=== PATIENT | female | born 1960 | race Caucasian/White ===

== ENCOUNTER 2024-02-14 03:20 | Observation (INO) | payer MEDICARE, OTHER ==
[2024-02-14] MEDS ORDERED: Ondansetron PF 4 MG/2 ML Vial IVP PRN (04:30)
[2024-02-14] MEDS ORDERED: Ipratropium/Albuterol 3 ML NEB NEB PRN (04:30)
[2024-02-14] MEDS ORDERED: Ketorolac Tromethamine 30 MG (1 mL) VIAL IVP SCH ×2 (04:45→06:00)
[2024-02-14] MEDS: Acetaminophen 325 MG TAB PO SCH (06:40)
[2024-02-14] MEDS: HYDROcodone/Acetaminophen 5/325 mg Tablet PO SCH (06:41)
[2024-02-14] MEDS: Sodium Chloride 0.9% 1,000 ML IV SCH (06:42)
[2024-02-14] MEDS: Cyclobenzaprine 10 MG TAB PO PRN (06:42)
[2024-02-14] MEDS ORDERED: Famotidine/PF 20 mg/2ml Vial SLOW IVP SCH (09:00)
[2024-02-14] MEDS: Enoxaparin 40 MG (0.4 mL) SYRINGE SC SCH (09:13)
[2024-02-14] MEDS: Polyethylene Glycol 3350 17 GM Packet PO SCH (09:13)
[2024-02-14] MEDS: Lactulose 20 GM (30 mL) UDCUP PO SCH (09:14)
[2024-02-14] MEDS: Senokot S 8.6-50 MG TAB PO SCH (09:15)
[2024-02-14] MEDS: Gabapentin 100 MG CAP PO SCH (09:16)
[2024-02-14] MEDS: Famotidine 20 MG TAB PO SCH (09:17)
[2024-02-14] MEDS: Morphine 2 MG/ML VIAL SLOW IVP PRN (09:54)
[2024-02-14] MEDS: Ibuprofen 200 MG TAB PO SCH (09:55)
[2024-02-14] MEDS: Acetaminophen 500 MG TAB PO SCH (12:50)
[2024-02-14] MEDS: Potassium Chloride 20 MEQ TAB PO SCH (17:15)
[2024-02-15 05:21] LABS: #Basophils 0.03 10x3/uL (0.0-0.2); %Basophils 0.5 % (0.0-1.0); %Eosinophils 6.6 % (0.0-10.0); %Lymphocytes 24.2 % (21.0-51.0); %Monocytes 5.6 % (0.0-10.0); %Neutrophils 62.6 % (42.0-75.0); Hematocrit 36.3 % (36.0-47.0); Hemoglobin 11.8 g/dL (12.0-16.0); Mean Corpuscular HGB CONC 32.5 g/dL (32.0-36.0); Mean Corpuscular Hemoglobin 30.6 pg (27.0-31.0); Mean Platelet Volume 9.7 fL (7.4-10.4); Platelet Count 230 10x3/uL (130-400); RBC Distribution Width 16.2 % (11.5-14.5); Red Blood Cell (RBC) Count 3.86 mill/uL (4.20-5.40)
[2024-02-15 05:40] LABS: Anion Gap 15 mmol/L (10-20); BUN (Urea Nitrogen) 17 mg/dL (9.8-20.1); Calc. Creatinine Clearance 0 mL/min (70-130); Calcium 8.7 mg/dL (7.8-10.44); Carbon Dioxide 20 mmol/L (23-31); Chloride 109 mmol/L (98-107); Estimated GFR 72; Glucose 80 mg/dL (80-115); Potassium 3.8 mmol/L (3.5-5.1); Sodium 140 mmol/L (136-145)
[2024-02-15 06:43] LABS: PTT 34.5 sec (22.9-36.1); Prothrombin Time 13.6 sec (12.0-14.7)
[2024-02-15 07:54] VITALS: TEMP 97.4
[2024-02-15 11:56] VITALS: BP 202/82
== END 2024-02-15 11:30 | disposition home or self-care (01) ==
LOC: ERS 03:20 → INTOOBSV 06:32 → MSONC 06:32
PROVIDERS: ADMIT Student in an Organized Health Care Education/Training Program; ATTEND Student in an Organized Health Care Education/Training Program
DX: S32.010A Wedge compression fracture of first lumbar vertebra, initial encounter for closed fracture (principal); S22.43XA Multiple fractures of ribs, bilateral, initial encounter for closed fracture; K80.20 Calculus of gallbladder without cholecystitis without obstruction; D64.1 Secondary sideroblastic anemia due to disease; G62.9 Polyneuropathy, unspecified; E03.9 Hypothyroidism, unspecified; Q21.10 Atrial septal defect, unspecified; F17.210 Nicotine dependence, cigarettes, uncomplicated; I10 Essential (primary) hypertension; V47.5XXA Car driver injured in collision with fixed or stationary object in traffic accident, initial encounter
CPT/HCPCS: 36415; 71045; 72100; 80048; 85025; 85610; 85730; G0390; J1650; J2272; J7050